=== PATIENT | female | born 1995 | race Caucasian/White ===

== ENCOUNTER 2017-05-13 16:25 | Emergency (ER) | payer OTHER ==
[~2017-05-13] VITALS: Ht 165.1 cm; Wt 75.7 kg
--- NOTE | ~2017-05-13 | CR2 ---
[facility] A Service of [facility] / [facility] RADIOLOGY TEXT RESULTS PATIENT: GABRIELA MYLES LOCATION: SED : 95 UNIT #: [id number] AGE: [address]: Van Whitehead SEX: F ORDER DR: [id number] [address] [address] [id number] E MR#: [id number] Acc #: [id number] NAME: GABRIELA MYLES : 1995 SEX: F STUDY DATE/TIME: 05/13/2017 17:09 UNIT: SED ROOM: STUDY DESCRIPTION: CR Abdomen Acute Series Attending Physician: Van Whitehead Ordering Physician: Emilee Li Pa-C Primary Care Physician: No Primary Care Physician MEDICAL IMAGING REPORT This report is preliminary unless electronic signature is present. EXAM Acute abdomen series, 05/13/2017. HISTORY 22-year-old female with abdominal pain and congestion, status post appendectomy 4 days ago. Possible surgical incision infection. COMPARISON None. FINDINGS Frontal chest and 2 flat and upright views of the abdomen were performed. Three total images. There is bibasilar atelectasis/infiltrate. Superimposed pneumonia not excluded in the appropriate clinical setting. No large pleural effusions. No pneumothorax. Heart size and mediastinum within normal limits. Pulmonary vasculature unremarkable. The bowel gas pattern is nonobstructive. No free intraperitoneal air. Surgical clip projects over the right lower quadrant of the abdomen. No pathologic calcifications. No acute bony abnormality. IMPRESSION 1. Bibasilar atelectasis/infiltrate. Superimposed pneumonia not excluded in the appropriate clinical setting. 2. No acute abdominal findings. Nonobstructive bowel gas pattern. No free intraperitoneal air. Dictated by... Ritchie Reddy M.D. THIS IS AN ELECTRONICALLY VERIFIED REPORT Ritchie Reddy M.D. at 05/14/2017 4:08 PM [facility] A Service of [facility] / [facility] RADIOLOGY TEXT RESULTS PATIENT: GABRIELA MYLES LOCATION: SED : 95 UNIT #: [id number] AGE: [address]: Van Whitehead SEX: F ORDER DR: Felicia TD: 05/14/2017 08:43 JOB #: [id number] MEDICAL IMAGING REPORT Page 1 of 1
[2017-05-13 18:27] LABS: URINE SOURCE CLEAN CATCH
[2017-05-13 18:29] LABS: MICRO INDICATED? NO; URINE APPEARANCE CLEAR; URINE BILIRUBIN NEG (NEG); URINE BLOOD NEG (NEG); URINE COLOR YELLOW; URINE GLUCOSE NEG (NORM); URINE KETONE NEG (NEG); URINE LEUKOCYTE ESTERASE NEG (NEG); URINE NITRATE NEG (NEG); URINE PROTEIN NEG (NEG); URINE UROBILINOGEN 0.2 MG/DL (NORM)
== END 2017-05-13 19:11 | disposition home or self-care (01) ==
LOC: SED 16:25
PROVIDERS: Nurse Practitioner Family
DX: K59.00 Constipation, unspecified (principal); Z90.89 Acquired absence of other organs; Z88.0 Allergy status to penicillin
CPT/HCPCS: 74022; 81003; 99284